=== PATIENT | male | born 1950 | race Caucasian/White ===

== ENCOUNTER 2016-12-29 20:51 | Emergency (ER) | payer OTHER ==
[2016-12-29 21:07] VITALS: BP 127/81; PULSE 80; RESP 16; TEMP 98.6; O2SAT 96
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
== END 2016-12-29 21:18 | disposition home or self-care (01) ==
LOC: CED 20:51
DX: Z02.83 Encounter for blood-alcohol and blood-drug test (principal)
CPT/HCPCS: 80307-PO; G0480